=== PATIENT | male | born 1950 | race Caucasian/White ===

== ENCOUNTER → 2016-11-16 | Outpatient (CLI) | payer BC ==
[~2016-11-16] MED LIST: AMLO-110 PO; DVN160125 PO; EZET10TA38 PO; HEART MEDICATIONS
[2016-11-16 17:31] LABS: BASO % 0.7 %; BASO ABS # 0.04 K/uL (0-0.2); COMPLETE YES; EOS % 6.2 %; HEMATOCRIT 42.8 % (42-52); IG% 0.2 %; LYMPH % 24.9 %; LYMPH ABS # 1.48 K/uL (1.2-3.4); MEAN CELL VOLUME 94.7 fL (80-100); MEAN CORPUSCULAR HEMOGLOBIN 32.3 pg (25-34); MEAN CORPUSCULAR HGB CONC 34.1 g/dl (32-36); MEAN PLATELET VOLUME 10.9 fL (7.4-10.4); MONO % 11.3 %; NEUT % 56.7 %; PLATELET COUNT 195 K/uL (130-400); RED BLOOD COUNT 4.52 M/uL (4.7-6.1); WHITE BLOOD COUNT 5.95 K/uL (4.8-10.8)
[2016-11-16 17:40] LABS: ALT/SGPT 45 U/L (12-78); BLOOD UREA NITROGEN 16 mg/dl (7-18); BUN/CREATININE RATIO 12.2 (10-20); CALCIUM 9.4 mg/dl (8.5-10.1); CARBON DIOXIDE 27 mmol/L (21-32); CHLORIDE 111 mmol/L (98-107); CHOLESTEROL 133 mg/dl (0-200); GLUCOSE 88 mg/dl (70-99); POTASSIUM 4.2 mmol/L (3.5-5.1); SODIUM 145 mmol/L (136-145); TRIGLYCERIDES 167 mg/dl (0-150); VERY LOW DENSITY LIPOPROT CALC 33 mg/dl
[2016-11-16 17:43] LABS: ALB/GLOB RATIO 1.2 (0.9-2); ALKALINE PHOSPHATASE 89 U/L (45-117); AST/SGOT 18 U/L (15-37); CHOLESTEROL/HDL RATIO 3.2; HDL CHOLESTEROL 41 mg/dl; LDL CHOLESTEROL CALCULATED 59 mg/dl
[2016-11-17 06:35] LABS: ESTIMATED AVERAGE GLUCOSE 123 mg/dl; HA1C FLAG Normal (Normal)
== END | disposition home or self-care (01) ==
LOC: C.LABBFT 12:15
PROVIDERS: ATTEND Internal Medicine
DX: E78.00 Pure hypercholesterolemia, unspecified (principal); I10 Essential (primary) hypertension; R73.01 Impaired fasting glucose

== ENCOUNTER → 2017-06-01 | Outpatient (CLI) | payer BC ==
[2017-06-01 17:53] LABS: ALT/SGPT 53 U/L (12-78); AST/SGOT 20 U/L (15-37); BLOOD UREA NITROGEN 17 mg/dl (7-18); CALCIUM 8.9 mg/dl (8.5-10.1); CARBON DIOXIDE 29 mmol/L (21-32); CREATININE 1.05 mg/dl (0.60-1.40); GLUCOSE 90 mg/dl (70-99); POTASSIUM 4.1 mmol/L (3.5-5.1); SODIUM 140 mmol/L (136-145)
[2017-06-01 17:56] LABS: CHOLESTEROL 131 mg/dl (0-200); LDL CHOLESTEROL CALCULATED 53 mg/dl
[2017-06-02 05:42] LABS: HEMOGLOBIN A1C 5.9 % (4.5-5.6)
== END | disposition home or self-care (01) ==
LOC: C.LABBFT 12:11
PROVIDERS: ATTEND Physician Assistant Medical
DX: I25.10 Atherosclerotic heart disease of native coronary artery without angina pectoris (principal)

== ENCOUNTER 2019-05-23 08:11 | Inpatient (IN) ==
--- NOTE | 2019-05-05 13:41 | PAT Medication Instructions ---
Medication Instructions Date of Service May 05, 2019 Home Medications Medication Instructions Recorded albuterol sulfate 90 mcg/actuation 2 puffs INH QID PRN #8 gm 12/19/18 aerosol inhaler desoximetasone 0.25 % topical cream 1 appln TOP BID PRN #60 gm 01/23/19 albuterol sulfate 90 mcg/actuation aerosol inhaler 2 puffs INH QID PRN cetirizine 10 mg tablet 10 mg PO DAILY PRN desoximetasone 0.25 % topical cream 1 appln TOP BID PRN allopurinol 100 mg PO BID amlodipine 7.5 mg PO QAM aspirin 325 mg PO PM atorvastatin 80 mg PO PM folic acid 1 mg PO QAM metoprolol succinate [Toprol XL] 50 mg PO QAM valsartan 160 mg PO QAM vitamin B complex [Super B-50 Complex] 1 cap PO QAM ASK your prescriber and surgeon aspirin 325 mg PO PM STOP taking 24 hours before surgery desoximetasone 0.25 % topical cream 1 appln TOP BID PRN DO NOT take the morning of surgery cetirizine 10 mg tablet 10 mg PO DAILY PRN folic acid 1 mg PO QAM valsartan 160 mg PO QAM vitamin B complex [Super B-50 Complex] 1 cap PO QAM Take morning of surgery With a small sip of water, OTHERWISE NOTHING TO EAT OR DRINK AFTER MIDNIGHT: albuterol sulfate 90 mcg/actuation aerosol inhaler 2 puffs INH QID PRN (use if needed; please bring with you to hospital day of surgery if possible) allopurinol 100 mg PO BID amlodipine 7.5 mg PO QAM metoprolol succinate [Toprol XL] 50 mg PO QAM Take evening before surgery albuterol sulfate 90 mcg/actuation aerosol inhaler 2 puffs INH QID PRN (if needed) cetirizine 10 mg tablet 10 mg PO DAILY PRN (if needed) allopurinol 100 mg PO BID atorvastatin 80 mg PO PM Other Notes If you have any questions please call us at [phone] or [phone] or [phone] or [phone]
--- NOTE | 2019-05-08 12:48 | Anesthesiology Consultation ---
Date of Service May 08, 2019 Assessment & Plan (1) Encounter for pre-operative examination: - Awaiting review of preop testing (labs, EKG, CXR). - Cardiology: 01/13/19: "Coronary artery disease. He is not experiencing any anginal symptoms. However, he is having dyspnea on exertion walking hill. Also dyspnea walking up a ladder. He also complains of decreased stamina over the past year cannot exclude that the dyspnea is an anginal equivalent symptom." Stress test ordered for further evaluation (done 03/2019 and unremarkable). Carotid ultrasound done for hx of carotid artery disease. Continued on same regimen. F/U 6 months recommended. - ASA instructions: per surgeon/prescriber Chart Review Chart Review: Patient seen in Pre Admission Testing Teaching & Discussion Pre-Anesthesia Teaching/Discussion Notes: Instructed NPO after midnight before surgery,except medications with 15 cc of water. Medication instructions provided according to the PAT guidelines. History Surgery Operation Date: 05/16/19 10:50 Proposed Procedures p Right Carotid Endarterectomy - Ben Callahan MD Height/Weight Height: 5 ft 7 in Weight: 101.2 kg Allergies Allergy/AdvReac Type Severity Reaction Status Date / Time No Known Allergies Allergy Unknown Verified 05/04/19 15:32 Medications Home Medications Medication Instructions Recorded Confirmed Last Taken albuterol sulfate 90 mcg/actuation 2 puffs INH QID PRN #8 gm 12/19/18 05/04/19 Unknown aerosol inhaler cetirizine 10 mg tablet 10 mg PO DAILY PRN tab 12/23/18 05/04/19 Unknown desoximetasone 0.25 % topical cream 1 appln TOP BID PRN #60 gm 01/23/19 05/04/19 Unknown allopurinol 100 mg PO BID 05/04/19 05/04/19 Unknown amlodipine 7.5 mg PO QAM 05/04/19 05/04/19 Unknown aspirin 325 mg PO PM 05/04/19 05/04/19 Unknown atorvastatin 80 mg PO PM 05/04/19 05/04/19 Unknown folic acid 1 mg PO QAM 05/04/19 05/04/19 Unknown metoprolol succinate [Toprol XL] 50 mg PO QAM 05/04/19 05/04/19 Unknown valsartan 160 mg PO QAM 05/04/19 05/04/19 Unknown vitamin B complex [Super B-50 1 cap PO QAM 05/04/19 05/04/19 Unknown Complex] Past Medical History Medical History CAD (coronary artery disease) stent x 1 (1999) Carotid artery stenosis Neck CTA: 04/04/19: estimated greater than 90% stenosis of the right internal carotid artery origin. No hemodynamically significant LICA stenosis. Chronic lower back pain Gout Hyperlipidemia Hypertension Myocardial infarction 1999 Obesity Osteoarthritis PAD (peripheral artery disease) cardio/vascular monitoring Exercise / Class Metabolic Activity III < 4 Walking/Shop/Light housework Past Family History Family History Grandmother (Maternal) Family history of diabetes mellitus Other No family history of adverse response to anesthesia Past Surgical History Surgical History History of cardiac cath 1999= STENT X 1 History of right knee surgery Past Anesthesia History No Hx of Anesthesia Complications and No Family Hx of Anesthesia Complications History of PONV No Hx of PONV and No Hx of Motion Sickness Social History Smoking Status: Former smoker Do You Dip or Chew Tobacco: No Smoking End Date: QUIT 1999 Hx Alcohol Use: Yes Alcohol type: beer and hard liquor alcohol intake frequency: a few times a week Hx Substance Use: No substance use type: does not use Review of Systems URI symptoms as of 05/08/19 PAT visit- patient will monitor symptoms and advised to contact surgeon if persistent/worsening prior to surgery. CXR being done 05/08/19 as part of preop testing. Patient denies chest pain, shortness of breath, reflux, wheezing, palpitations. Physical Exam Vital Signs VITALS BP 135/84 P 55 TEMP 98.4 SP02 93%RA RESP 18 PHYSICAL Full neck and c-spine range of motion. Full TMJ range of motion. TMD 3.5 finger breaths Mallampati Score 1 Dentition: upper full denture, edentulous Lungs: clear throughout to auscultation Cardiac: regular rate and rhythm, no murmurs noted Spine: normal Carotid arteries: b/l bruits Extremities: no edema Testing Stress Test Date: 03/14/19 Type: exercise Negative exercise stress ECHO/EKG for ischemia at 75% MPHR. Mild cLVH. Grade I DD. Mild LAD. No significant valvular disease. 5 METS. LVEF 65-70%. Compared to stress echo from 05/2008, no significant interval change. Other Testing Neck CTA: 04/04/19: Extensive calcific atheromatous plaque at the level the right carotid bulb with an estimated greater than 90% stenosis of the right internal carotid artery origin. No hemodynamically significant LICA stenosis.
[2019-05-08 14:01] LABS: Mean Platelet Volume 11.3 fL (7.4-10.4); Platelet Count 146 K/uL (130-400)
--- NOTE | 2019-05-08 14:05 | XRay Report ---
XR chest Pre-admission PA/Lat CLINICAL HISTORY: Preoperative chest COMPARISON STUDY: No previous studies for comparison. FINDINGS: The cardiac and mediastinal contours are normal. There is no evidence of focal pulmonary co nsolidation. There is no evidence of failure. No pleural effusions are visualized.[ IMPRESSION: No active disease in the chest. ACT 112: Negative or not required by law. Electronically signed by: Edward Reddy M.D. 05/08/2019 2:03 PM
[2019-05-08 14:17] LABS: Partial Thromboplastin Ratio 0.9; Partial Thromboplastin Time 24.9 Seconds (21.0-31.0); Prothrombin Time 10.7 Seconds (9.0-12.0)
[2019-05-08 14:42] LABS: Basophils # (auto) 0.02 K/uL (0-0.2); Basophils % (auto) 0.5 %; Eosinophils # (auto) 0.28 K/uL (0-0.5); Eosinophils % (auto) 6.5 %; Hematocrit (blood only) 46.6 % (42-52); Hemoglobin 15.4 g/dL (14.0-18.0); Immature Granulocytes # (auto) 0.02 K/uL (0.00-0.02); Immature Granulocytes % (auto) 0.5 %; Lymphocytes # (auto) 0.98 K/uL (1.2-3.4); Lymphocytes % (auto) 22.6 %; Mean Corpuscular Hemoglobin 32.2 pg (25-34); Mean Corpuscular Volume 97.3 fL (80-100); Monocytes # (auto) 0.81 K/uL (0.11-0.59); Monocytes % (auto) 18.7 %; Neutrophils # (auto) 2.23 K/uL (1.4-6.5); Neutrophils % (auto) 51.2 %; RDW Coefficient of Variation 13.3 % (11.5-14.5); RDW Standard Deviation 47.1 fL (36.4-46.3); Red Blood Count 4.79 M/uL (4.7-6.1); White Blood Count 4.34 K/uL (4.8-10.8)
--- NOTE | 2019-05-08 15:44 | Electrocardiogram Report ---
Test Reason : Blood Pressure : / mmHG Vent. Rate : 056 BPM Atrial Rate : 056 BPM P-R Int : 168 ms QRS Dur : 146 ms QT Int : 470 ms P-R-T Axes : 040 090 038 degrees QTc Int : 453 ms Sinus bradycardia with occasional Premature ventricular complexes Right bundle branch block Abnormal ECG When compared with ECG of 25-JUL-1999 06:35, Premature ventricular complexes are now Present Right bundle branch block is now Present Criteria for Inferior infarct are no longer Present Confirmed by Sadiq Brown ([id number]) on 05/08/2019 3:43:50 PM Referred By: Ben Callahan Confirmed By:Sadiq Brown
[2019-05-08 15:51] LABS: BUN Creatinine Ratio 11.9 (10-20); Creatinine Clr Calc Pharmacy 71.3 ml/min; Est GFR (African American) 76.7; Est GFR (Non-African American) 66.2; Potassium 4.7 mmol/L (3.5-5.1)
--- NOTE | 2019-05-23 06:40 | History & Physical Report ---
Date of Service May 23, 2019 Assessment & Plan (1) Stenosis of right internal carotid artery: Patient is admitted for a right carotid endarterectomy. I have discussed the risks options and benefits of the procedure with the patient. The patient understands the risks options and benefits and agrees to the procedure. History of Present Illness Chief Complaint: Right internal carotid artery stenosis Primary Care Provider: Alex Correa MD Mr. Kole Mendez is a very pleasant 68-year-old gentleman who recently underwent a carotid duplex that was notable for 80% to 99% critical stenosis of the right internal carotid artery, less than 50% stenosis in the left internal carotid artery, and greater than 50% stenosis in the right external carotid artery. He then underwent a CT angio of the bilateral carotid arteries. CTA revealed extensive calcific atheromatous plaque at the level of the right carotid bulb with an estimated greater than 90% stenosis of the right internal carotid artery origin. This prompted a referral to the Vascular Surgery Office. He indicates that he has never had a stroke or TIA. He denies any episodes of vision loss, difficulty with speech or swallow, numbness, tingling, or weakness of the upper or lower extremities. His medical history is notable for prior ME, back in early 1999s. At this time, he had a coronary stent placed. He denies further anginal symptoms. He denies any issues with respiratory system. He has no known issues with his kidneys. He denies known abdominal issues. 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 This is associated with some hip and knee pain. He denies any cramping pain in his calves with ambulation. He also suffers from hypertension. His surgical history is notable for a previous knee replacement and a coronary artery stent placement. His family history is notable for heart disease, high blood pressure, diabetes, and cancer. Review of 10 systems performed. All were negative except for the HPI He denies any known medication allergies. His home medications include metoprolol, Diovan, Norvasc, folic acid, B vitamins, allopurinol, Lipitor, and aspirin 325 mg daily. On physical examination, his vital signs are as follows: Blood pressure 150/78, heart rate 58, oxygen saturation 96% on room air. He is well developed, well nourished, in no acute distress. His respirations are nonlabored on room air. His lungs are clear to auscultation bilaterally. On cardiac auscultation, he has an audible S1 and S2 with no murmurs, rubs, or gallops appreciated. On auscultation of his neck, there are bilateral carotid bruits present. His abdomen is soft, nontender, nondistended. There are no palpable pulsatile abdominal masses. His bilateral feet are warm and well perfused. There are palpable dorsalis pedis pulses present bilaterally. In regards to his neurologic examination, he responds to questions appropriately. Cranial nerves 2-12 are grossly intact. Motor and sensory are intact throughout all 4 extremities. On review of his imaging, there is a greater than 90% stenosis of the right internal carotid artery, which was noted on both the carotid duplex and CT angio as mentioned above. Allergies Allergy/AdvReac Type Severity Reaction Status Date / Time No Known Allergies Allergy Unknown Verified 05/04/19 15:32 Home Medications Home Medications Medication Instructions Recorded Confirmed Type albuterol sulfate 90 mcg/actuation 2 puffs INH QID PRN #8 gm 12/19/18 05/04/19 Rx aerosol inhaler cetirizine 10 mg tablet 10 mg PO DAILY PRN tab 12/23/18 05/04/19 History desoximetasone 0.25 % topical cream 1 appln TOP BID PRN #60 gm 01/23/19 05/04/19 Rx allopurinol 100 mg PO BID 05/04/19 05/04/19 History amlodipine 7.5 mg PO QAM 05/04/19 05/04/19 History aspirin 325 mg PO PM 05/04/19 05/04/19 History atorvastatin 80 mg PO PM 05/04/19 05/04/19 History folic acid 1 mg PO QAM 05/04/19 05/04/19 History metoprolol succinate [Toprol XL] 50 mg PO QAM 05/04/19 05/04/19 History valsartan 160 mg PO QAM 05/04/19 05/04/19 History vitamin B complex [Super B-50 1 cap PO QAM 05/04/19 05/04/19 History Complex] Past Med/Surg History Medical History CAD (coronary artery disease) stent x 1 (1999) Carotid artery stenosis Neck CTA: 04/04/19: estimated greater than 90% stenosis of the right internal carotid artery origin. No hemodynamically significant LICA stenosis. Chronic lower back pain Gout Hyperlipidemia Hypertension Myocardial infarction 1999 Obesity Osteoarthritis PAD (peripheral artery disease) cardio/vascular monitoring Surgical History History of cardiac cath 1999= STENT X 1 History of right knee surgery Family History Grandmother (Maternal) Family history of diabetes mellitus Other No family history of adverse response to anesthesia Social History Preferred Language: Irish Communication Ability: Effective Guide Escort Required: No Beliefs That Will Affect Care: None Current Living Situation: Spouse Other Information That Helps Us Care for You: No Feels Safe at Home: Yes Safety Concerns: Feels Safe At This Time Smoking Status: Former smoker Do You Dip or Chew Tobacco: No ; Smoking End Date: QUIT 1999 ; Second Hand Exposure: Yes (CURRENT EXPOSURE) ; Tobacco Cessation Education Requested by Patient: No Hx Alcohol Use: Yes Alcohol type: beer and hard liquor Hx Substance Use: No
[~2019-05-23 08:11] MED LIST changes: -AMLO-110 PO; +CEFAZOLIN 2000MG 2,000 MG/15 ML SYR IV SCH; -DVN160125 PO; -EZET10TA38 PO; -HEART MEDICATIONS; +LACTATED RINGER'S 1,000 ML IV SCH
[2019-05-23] MEDS ORDERED: NEOSTIGMINE METHYLSULFATE 5 MG/5 ML SYR ONE (09:27)
[2019-05-23] MEDS ORDERED: PROPOFOL IV EMULSION 10 MG/ML 20 ML VIAL IV ONE ×2 (09:27→13:01)
[2019-05-23] MEDS ORDERED: ROCURONIUM BROMIDE 10 MG/ML 5 ML VIAL ONE (09:27)
[2019-05-23] MEDS ORDERED: LIDOCAINE HCL 2% 2 ML VIAL/AMP(20MG/ML) INFIL ONE (09:27)
[2019-05-23] MEDS ORDERED: GLYCOPYRROLATE 0.2 MG/ML VIAL ONE (09:27)
[2019-05-23] MEDS ORDERED: MIDAZOLAM HCL 1 MG/ML 2ML VIAL ONE (09:27)
[2019-05-23] MEDS ORDERED: fentaNYL citrate 100 MCG/2 ML VIAL ONE ×2 (09:28→11:35)
[2019-05-23] MEDS ORDERED: ATROPINE SULFATE 0.1 MG/ML 10ML SYR IV PRN (09:50)
[2019-05-23] MEDS ORDERED: ePHEDrine sulfate 50 MG/ML AMP IV PRN (09:50)
[2019-05-23] MEDS ORDERED: fentaNYL citrate 100 MCG/2 ML VIAL IV PRN (09:50)
[2019-05-23] MEDS ORDERED: ONDANSETRON INJ 2 MG/ML 2 ML VIAL IV PRN (09:50)
[2019-05-23] MEDS ORDERED: HYDROmorphone INJ 2 MG/ML SYR/VIAL IV PRN (09:50)
--- NOTE | 2019-05-23 10:17 | History & Physical Bridge Note ---
Date of Service May 23, 2019 History & Physical Bridge Note I have examined the patient, reviewed the History & Physical and in the interval since the performance of the History & Physical I have noted the following changes of clinical significance: no changes noted
[2019-05-23] MEDS ORDERED: HEPARIN (PORCINE) 1000 UNIT/ML 10 ML (CATH LAB USE ONLY) ONE (10:41)
[2019-05-23] MEDS ORDERED: LIDOCAINE HCL 1% 20 ML VIAL ONE (10:41)
[2019-05-23] MEDS ORDERED: GELATIN SPONGE SZ 100 ONE (10:42)
[2019-05-23] MEDS ORDERED: THROMBIN FOR SOLN 20000 UNIT KIT ONE (10:42)
[2019-05-23] MEDS ORDERED: BUPIVACAINE/EPINEPHRINE 0.5% MPF 1:200,000 10 ML VIAL ONE (10:42)
[2019-05-23] MEDS ORDERED: CEFAZOLIN 250 MG/ML 1 GM VIAL ONE (10:42)
--- NOTE | 2019-05-23 11:42 | Procedure Note ---
Procedure Note Date of Service May 23, 2019 Radial arterial line placed in ASU 2 preop in preparation for CEA with Dr. Callahan. Left wrist prepped with chlorhexidine and draped with sterile towels. Site infiltrated with 1 cc of 1% lidocaine. 20 G angiocath placed under sterile technique with ultrasound guidance utilizing sterile gloves, surgical hats and masks. Catheter threaded using seldinger technique with return of pulsatile, bright red blood. Site covered with occlusive dressing and taped in place. Waveform consistent with correct arterial placement. After placement, fingers of procedural hand had normal perfusion. Patient tolerated procedure well without complications. Mary Lester MD, PhD Anesthesiologist Coding
[2019-05-23] MEDS ORDERED: DEXAMETHASONE SOD INJ 4 MG/ML VIAL ONE (11:50)
[2019-05-23] MEDS ORDERED: ONDANSETRON INJ 2 MG/ML 2 ML VIAL ONE (11:50)
[2019-05-23] MEDS ORDERED: ePHEDrine sulfate 50 MG/ML SYR ONE (12:25)
[2019-05-23] MEDS ORDERED: HEPARIN SOD (PORCINE) 1000 UNIT/ML 10 ML VIAL ONE (12:25)
[2019-05-23] MEDS ORDERED: PHENYLEPHRINE HCL 10 MG/ML VIAL ONE (12:25)
--- NOTE | 2019-05-23 13:22 | Post Operative Brief Note ---
Immediate Post Op Note v1 Date of Surgery May 23, 2019 Pre & Post Diagnosis Operation Date: 05/23/19 10:20 Pre-Op Diagnosis: Right Internal Carotid Artery Stenosis Post-Op Diagnosis: Right Internal Carotid Artery Stenosis I identified the patient and participated in the time-out.: Yes Procedure Operation Date: 05/23/19 10:20 Actual Procedures p Right Carotid Endarterectomy, with bovine patch(Right) - Ben Callahan MD Surgeon Ben Callahan MD Personal Development Coach MD Venus L.Minarchick,PAC Estimated Blood Loss 120 Findings Consistent with Post-Op Diagnosis Anesthesia Type General Complications none Disposition Accompanied Patient To Recovery: No Disposition: Recovery Room
--- NOTE | 2019-05-23 13:54 | Operative Report ---
Post Operative Report Pre & Post Diagnosis Operation Date: 05/23/19 10:20 Pre-Op Diagnosis: Right Internal Carotid Artery Stenosis Post-Op Diagnosis: Right Internal Carotid Artery Stenosis I identified the patient and participated in the time-out.: Yes Procedure Operation Date: 05/23/19 10:20 Actual Procedures p Right Carotid Endarterectomy, with bovine patch(Right) - Ben Callahan MD Surgeon Ben Callahan MD Animal Sticker MD Venus L.Minarchick,PAC Estimated Blood Loss 120 Findings Consistent with Post-Op Diagnosis Fluids 1200 ml crystalloid Specimens Carotid plaque Drains None Anesthesia Type General Complications none Disposition Accompanied Patient To Recovery: No Disposition: Recovery Room Indications 68-year-old gentleman presents with critical right carotid artery stenosis with greater than 90% stenosis of the right internal carotid artery noted in both carotid duplex as well as CT angiogram. He has had no other symptoms prior to presentation. It was recommended he undergo a right carotid endarterectomy. I have discussed the risks options and benefits of the procedure with the patient. The patient understands the risks options and benefits and agrees to the procedure. Description of Procedure The patient was taken to the operating room and placed in supine position. After general anesthesia was accomplished the Right-side of the neck was prepped and draped in a sterile manner. A timeout was performed and the patient id entified. A longitudinal neck incision was then made coursing along the medial border of the sternocleidomastoid muscle. The incision was taken down through the platysmal layer. The facial vein was identified, ligated, and divided. The common carotid artery was then seen. The vagus was also identified and preserved. The common carotid was dissected free down to the omohyoid muscle. The dissection was carried upward until the external carotid artery and superior thyroid artery was seen. The superior thyroid artery was slung with a 2-0 silk suture. The external carotid was slung with a red rubber vessel loop. Next the dissection was carried up along the internal carotid artery. This was carried upward to beyond the area of narrowing. During this the patient became bradycardic, and lidocaine was injected into the carotid bulb with appropriate recovery of heart rate and blood pressures. The hypoglossal nerve was seen and preserved. The patient was heparinized. After adequate heparinization was accomplished, the internal, external, and common carotid arteries were clamped. A longitudinal arteriotomy was started on the common carotid artery and extended upward along the internal carotid artery to a point beyond the area of narrowing. There was calcified plaque of the internal carotid artery origin causing approximately 90% narrowing. A Doppler shunt was then placed in the internal, followed by the common carotid artery and held in place with Naresh clamps. There was good back bleeding seen from the internal carotid artery. The endarterectomy was then started in the appropriate plane on the common carotid artery. This was carried upward and the external carotid was everted and endarterectomized. The endarterectomy was then carried up along the internal carotid artery till a nice feathering breakoff point was accomplished beyond the end of the plaque. The endarterectomy was then carried down further on the common carotid artery. At end of the arteriotomy, the plaque was then transected. Under loop magnification, all loose debris and flaps were removed. There is no distal flap seen at the end of the endarterectomy site. The arteriotomy then closed using a bovine patch and a double arm running 6-Prolene suture. This was done in the usual vascular fashion. Prior to completing the closure, the doppler shunt was removed and the internal and common carotid arteries were reclamped. Backbleeding and forward bleeding was allowed to occur. The flow surface was irrigated with heparinized saline. The final few sutures were then placed and securely tied. Clamps were then removed off the external and common carotid arteries. The clamp was then removed the internal carotid artery. Good distal flow was seen. Three regions of small leak were identified and addressed with additional interrupted [id number] 6-0 Prolene suture. Following this, adequate hemostasis was seen of the patch. The wound was inspected and adequate hemostasis was obtained. using thrombin soaked gel foam- the gel foam was then removed. The wound was irrigated with antibiotic solution. It was then closed with a running 3-0 Vicryl suture for the platysmal layer and a 4-0 subcuticular Vicryl suture for the skin edges. Dermabond was used for dressing. The patient left the operating room in satisfactory condition and tolerated the procedure well. All sponge and needle counts are correct at the conclusion of the case. Dr. Callahan was present and scrubbed for the entirety of the case. I attest to the content of the Intraoperative Record and any orders documented therein. Any exceptions are noted below.
--- NOTE | 2019-05-23 14:58 | Anesthesiology Progress Note ---
Date of Service May 23, 2019 Anesthesia Post Procedure Vital Signs Vital Signs: Temp Pulse Pulse Resp BP BP Pulse Ox 05/23/19 14:50 36.5 C 59 L 21 110/57 L 94 05/23/19 14:40 60 17 102/63 92 05/23/19 14:30 65 17 110/65 93 05/23/19 14:20 62 13 106/65 95 05/23/19 14:10 60 12 109/62 95 05/23/19 14:04 36.5 C 69 12 122/62 97 05/23/19 09:07 36.9 C 76 18 168/95 H 94 Transfer of Care Handoff Completed per policy Notes Mental Status: alert / awake / arousable and participated in evaluation Patient Amnestic to Procedure: Yes Nausea / Vomiting: adequately controlled Pain: adequately controlled Airway Patency, RR, SpO2: stable & adequate BP & HR: stable & adequate Hydration State: stable & adequate Anesthetic Complications: no major complications apparent and Pt Satisfied with anesthetic care
[2019-05-23] MEDS ORDERED: CETIRIZINE HCL 10 MG TABLET PO PRN (15:22)
[2019-05-23] MEDS ORDERED: MoRPHine SULFATE 4 MG/ML 1 ML CARP\\VIAL IV PRN (15:22)
[2019-05-23] MEDS ORDERED: OXYCODONE/ACETAMINOPHEN 5mg/325mg TAB PO PRN (15:22)
[2019-05-23] MEDS ORDERED: ALBUTEROL HFA 8 GM INHALER INH PRN (15:26)
--- NOTE | 2019-05-23 15:49 | Critical Care Consultation ---
Date of Consultation May 23, 2019 Assessment & Plan (1) Stenosis of right internal carotid artery: Impression: 68-year-old male status post carotid endarterectomy. The patient has a history of hypertension hyperlipidemia but appears to be doing well postoperatively. Recommendation: 1. Status post carotid endarterectomy. Management per vascular surgery. 2. Hypertension: Continue the patient's outpatient antihypertensives. Blood pressure goals per vascular surgery. 3. Hyperlipidemia: Continue statin. 4. Obesity: The patient is at high risk for sleep disordered breathing. Will monitor overnight tonight. If he has significant witnessed apnea, consideration for referral for overnight attended polysomnogram versus home sleep study may be appropriate. 5. The patient's remaining critical care issues have been well addressed by the vascular surgical service. We will continue to follow while in the ICU for critical care issues. Feel free to contact us if we can be of additional assistance. (2) Hypertension: (3) Hyperlipidemia: History of Present Illness Attending Physician: Ben Callahan MD History of Present Illness Asked by vascular surgery service to assist with critical care management of this patient status post carotid endarterectomy. History is obtained from review the electronic medical record as well as discussion with the patient. Patient is a 68-year-old with a history of obesity, hypertension found to have carotid stenosis. He has a remote history of coronary disease and. He was evaluated by Dr. Callahan and felt to be an appropriate candidate for carotid endarterectomy. He was taken to the OR today and underwent right carotid endarterectomy. The procedure was uncomplicated and he returns to the ICU for monitoring. He is currently awake and alert. He denies any neurological symptoms. His pain is well controlled. No diplopia. No problems with speaking or swallowing. Allergies Allergy/AdvReac Type Severity Reaction Status Date / Time No Known Allergies Allergy Unknown Verified 05/23/19 08:51 Home Medications Home Medications Medication Instructions Recorded Confirmed Type albuterol sulfate 90 mcg/actuation 2 puffs INH QID PRN #8 gm 12/19/18 05/23/19 Rx aerosol inhaler cetirizine 10 mg tablet 10 mg PO DAILY PRN tab 12/23/18 05/23/19 History allopurinol 100 mg PO BID 05/04/19 05/23/19 History amlodipine 7.5 mg PO QAM 05/04/19 05/23/19 History aspirin 325 mg PO PM 05/04/19 05/23/19 History atorvastatin 80 mg PO PM 05/04/19 05/23/19 History folic acid 1 mg PO QAM 05/04/19 05/23/19 History metoprolol succinate [Toprol XL] 50 mg PO QAM 05/04/19 05/23/19 History valsartan 160 mg PO QAM 05/04/19 05/23/19 History vitamin B complex [Super B-50 1 cap PO QAM 05/04/19 05/23/19 History Complex] desoximetasone [Topicort] 1 appln TOP BID PRN 05/23/19 05/23/19 History Patient History Medical History CAD (coronary artery disease) stent x 1 (1999) Carotid artery stenosis Neck CTA: 04/04/19: estimated greater than 90% stenosis of the right internal carotid artery origin. No hemodynamically significant LICA stenosis. 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 No additions or deletions Physical Exam Constitutional: WD/WN, vitals as above Neck: trachea midline, no thyromegaly Carotid endarterectomy incision clean dry and intact Respiratory: normal respiratory effort, lungs clear to auscultation Cardiovascular: RRR, no murmur, no edema Gastrointestinal (Abdomen): normal bowel sounds, soft, nontender, no hepa tosplenomegaly Musculoskeletal: Extremities: extremities normal to inspection Skin: no rashes, warm and dry Neurologic: Nonfocal exam Lymphatic: no cervical lymphadenopathy Results & Data Vital Signs (Past 12 Hours) Vital Signs Temp Pulse Pulse Resp BP BP Pulse Ox 05/23/19 15:00 62 15 104/58 L 96 05/23/19 14:50 36.5 C 59 L 21 110/57 L 94 05/23/19 14:40 60 17 102/63 92 05/23/19 14:30 65 17 110/65 93 05/23/19 14:20 62 13 106/65 95 05/23/19 14:10 60 12 109/62 95 05/23/19 14:04 36.5 C 69 12 122/62 97 05/23/19 09:07 36.9 C 76 18 168/95 H 94 Laboratory Results 05/08/19 13:34 05/08/19 13:34 Diagnostic Findings Chest x-ray from 05/08/2019 was independently reviewed. Lungs are well aerated. Cardiac and mediastinal silhouettes are unremarkable. No increased interstitial markings or pleural effusions. Coding Level of Care Code 30071 Inpt Consult Level 3 Diagnoses Stenosis of right internal carotid artery I65.21 Hypertension I10 Hyperlipidemia E78.5
[2019-05-23] MEDS ORDERED: SODIUM CHLORIDE 0.9% 1000ML 500 ML IV ONE (15:57)
[2019-05-23] MEDS: LACTATED RINGER'S 1,000 ML IV SCH (16:32)
[2019-05-23] MEDS: PHENYLEPHRINE HCL 20 MG in DEXTROSE 5% 500 ML IV SCH (17:10)
[2019-05-23] MEDS: CEFAZOLIN 2000MG 2,000 MG/15 ML SYR IV SCH (19:26)
[2019-05-23] MEDS: ASPIRIN 325 MG ECTAB PO SCH (20:35)
[2019-05-23] MEDS: ATORVASTATIN 40 MG TAB PO SCH (20:35)
[2019-05-23] MEDS: allopurinoL 100 MG TAB PO SCH (20:36)
[2019-05-24] MEDS: PHENYLEPHRINE HCL 20 MG in DEXTROSE 5% 500 ML IV SCH ×2 (00:13→07:10)
[2019-05-24] MEDS: CEFAZOLIN 2000MG 2,000 MG/15 ML SYR IV SCH (04:11)
[2019-05-24 05:10] LABS: Hematocrit (blood only) 40.4 % (42-52); Hemoglobin 13.5 g/dL (14.0-18.0); Immature Granulocytes # (auto) 0.03 K/uL (0.00-0.02); Immature Granulocytes % (auto) 0.3 %; Lymphocytes # (auto) 1.27 K/uL (1.2-3.4); Lymphocytes % (auto) 11.1 %; Mean Corpuscular Hemoglobin 32.4 pg (25-34); Mean Corpuscular Hgb Conc 33.4 g/dL (32-36); Mean Corpuscular Volume 96.9 fL (80-100); Mean Platelet Volume 11.1 fL (7.4-10.4); Monocytes # (auto) 1.42 K/uL (0.11-0.59); Monocytes % (auto) 12.4 %; Neutrophils # (auto) 8.74 K/uL (1.4-6.5); Neutrophils % (auto) 76.2 %; Platelet Count 208 K/uL (130-400); RDW Coefficient of Variation 13.4 % (11.5-14.5); RDW Standard Deviation 46.8 fL (36.4-46.3); Red Blood Count 4.17 M/uL (4.7-6.1); White Blood Count 11.46 K/uL (4.8-10.8)
[2019-05-24 05:26] LABS: BUN Creatinine Ratio 13.6 (10-20); Calcium 8.5 mg/dl (8.5-10.1); Creatinine Clr Calc Pharmacy 64.6 ml/min; Est GFR (African American) 68.6; Est GFR (Non-African American) 59.2; Potassium 4.3 mmol/L (3.5-5.1)
[2019-05-24] MEDS: FOLIC ACID 1 MG TAB PO SCH (07:34)
[2019-05-24] MEDS: allopurinoL 100 MG TAB PO SCH ×2 (07:35→20:49)
[2019-05-24] MEDS: VITAMIN B COMPLEX TAB PO SCH (07:35)
--- NOTE | 2019-05-24 08:12 | Anesthesiology Progress Note ---
Date of Service May 24, 2019 Anesthesia Post Procedure Vital Signs Vital Signs: Temp Pulse Pulse Pulse Resp BP BP 05/24/19 07:46 76 27 H 136/97 05/24/19 07:45 37.1 C 71 17 05/24/19 07:31 70 28 H 05/24/19 07:30 71 25 H 134/83 05/24/19 07:16 56 L 17 05/24/19 07:15 57 L 18 134/68 05/24/19 07:01 58 L 18 05/24/19 07:00 60 17 132/70 05/24/19 06:46 57 L 16 05/24/19 06:45 61 17 137/71 05/24/19 06:31 60 13 05/24/19 06:30 60 15 136/81 05/24/19 06:16 59 L 18 05/24/19 06:15 66 20 123/82 05/24/19 06:05 69 32 H 05/24/19 05:46 53 L 17 05/24/19 05:45 56 L 18 137/76 05/24/19 05:31 53 L 17 05/24/19 05:30 53 L 17 132/75 05/24/19 05:16 55 L 17 05/24/19 05:15 54 L 17 143/74 H 05/24/19 05:00 70 22 05/24/19 04:46 54 L 20 05/24/19 04:45 62 23 144/79 H 05/24/19 04:31 54 L 16 05/24/19 04:00 37.1 C 57 L 16 134/70 05/24/19 03:00 56 L 19 138/73 05/24/19 02:00 59 L 18 134/73 05/24/19 01:00 58 L 17 135/69 05/24/19 00:00 37.1 C 53 L 17 125/67 05/23/19 23:00 56 L 17 138/75 05/23/19 22:31 56 L 19 05/23/19 22:30 60 21 136/75 05/23/19 22:20 56 L 17 05/23/19 22:16 56 L 17 05/23/19 22:15 55 L 17 128/70 05/23/19 22:01 56 L 14 05/23/19 22:00 55 L 18 132/71 05/23/19 21:46 58 L 24 126/51 L 05/23/19 21:45 70 21 05/23/19 21:31 64 23 05/23/19 21:30 58 L 19 146/76 H 05/23/19 21:16 56 L 15 05/23/19 21:15 53 L 16 129/74 05/23/19 21:01 53 L 18 05/23/19 21:00 56 L 15 137/70 05/23/19 20:46 56 L 18 05/23/19 20:45 55 L 14 127/75 05/23/19 20:31 57 L 18 05/23/19 20:30 57 L 19 135/68 05/23/19 20:16 53 L 16 05/23/19 20:15 56 L 16 129/68 05/23/19 20:01 53 L 18 05/23/19 20:00 53 L 19 138/73 05/23/19 19:50 51 L 05/23/19 19:46 52 L 18 05/23/19 19:45 53 L 17 126/70 05/23/19 19:31 57 L 22 05/23/19 19:30 60 20 138/71 05/23/19 19:16 53 L 19 05/23/19 19:15 36.9 C 52 L 16 133/69 05/23/19 19:01 54 L 20 05/23/19 19:00 54 L 19 128/72 05/23/19 18:46 53 L 12 05/23/19 18:45 53 L 16 131/66 05/23/19 18:40 48 L 18 05/23/19 18:31 52 L 15 05/23/19 18:30 53 L 17 126/67 05/23/19 18:20 51 L 18 05/23/19 18:15 52 L 18 129/66 05/23/19 18:10 52 L 18 05/23/19 18:01 45 L 21 05/23/19 18:00 48 L 20 131/65 05/23/19 17:50 51 L 20 05/23/19 17:45 51 L 19 133/68 05/23/19 17:40 47 L 17 05/23/19 17:38 52 L 18 130/65 05/23/19 17:36 46 L 22 131/63 05/23/19 17:31 46 L 18 05/23/19 17:30 47 L 15 122/62 05/23/19 17:25 48 L 17 116/66 05/23/19 17:22 05/23/19 17:20 55 L 20 05/23/19 17:16 52 L 24 05/23/19 17:15 52 L 22 101/58 L 05/23/19 17:01 58 L 24 05/23/19 17:00 62 22 99/63 L 05/23/19 16:50 59 L 25 H 05/23/19 16:46 61 21 05/23/19 16:45 59 L 20 103/49 L 05/23/19 16:40 67 18 05/23/19 16:31 59 L 12 05/23/19 16:20 61 18 98/55 L 05/23/19 16:16 60 15 92/54 L 05/23/19 16:10 59 L 23 05/23/19 16:01 58 L 20 05/23/19 16:00 60 23 105/48 L 05/23/19 15:55 58 L 19 96/47 L 05/23/19 15:54 61 22 91/57 L 05/23/19 15:50 59 L 23 05/23/19 15:40 58 L 19 05/23/19 15:30 58 L 18 05/23/19 15:20 59 L 15 05/23/19 15:18 36.6 C 58 L 96/50 L 05/23/19 15:00 62 15 05/23/19 14:50 36.5 C 59 L 21 05/23/19 14:40 60 17 05/23/19 14:30 65 17 05/23/19 14:20 62 13 05/23/19 14:10 60 12 05/23/19 14:04 36.5 C 69 12 05/23/19 09:07 36.9 C 76 18 168/95 H BP Pulse Ox 05/24/19 07:46 93 05/24/19 07:45 93 05/24/19 07:31 93 05/24/19 07:30 93 05/24/19 07:16 91 05/24/19 07:15 94 05/24/19 07:01 91 05/24/19 07:00 91 05/24/19 06:46 92 05/24/19 06:45 93 05/24/19 06:31 91 05/24/19 06:30 90 05/24/19 06:16 94 05/24/19 06:15 94 05/24/19 06:05 05/24/19 05:46 93 05/24/19 05:45 93 05/24/19 05:31 91 05/24/19 05:30 92 05/24/19 05:16 93 05/24/19 05:15 93 05/24/19 05:00 93 05/24/19 04:46 92 05/24/19 04:45 94 05/24/19 04:31 94 05/24/19 04:00 92 05/24/19 03:00 91 05/24/19 02:00 92 05/24/19 01:00 92 05/24/19 00:00 92 05/23/19 23:00 90 05/23/19 22:31 91 05/23/19 22:30 93 05/23/19 22:20 91 05/23/19 22:16 90 05/23/19 22:15 91 05/23/19 22:01 96 05/23/19 22:00 91 05/23/19 21:46 91 05/23/19 21:45 05/23/19 21:31 93 05/23/19 21:30 92 05/23/19 21:16 91 05/23/19 21:15 91 05/23/19 21:01 95 05/23/19 21:00 94 05/23/19 20:46 91 05/23/19 20:45 96 05/23/19 20:31 90 05/23/19 20:30 91 05/23/19 20:16 90 05/23/19 20:15 91 05/23/19 20:01 96 05/23/19 20:00 97 05/23/19 19:50 05/23/19 19:46 96 05/23/19 19:45 97 05/23/19 19:31 96 05/23/19 19:30 95 05/23/19 19:16 97 05/23/19 19:15 97 05/23/19 19:01 98 05/23/19 19:00 97 05/23/19 18:46 97 05/23/19 18:45 98 01/21/20 18:40 96 05/23/19 18:31 96 05/23/19 18:30 95 05/23/19 18:20 96 05/23/19 18:15 95 05/23/19 18:10 96 05/23/19 18:01 96 05/23/19 18:00 96 05/23/19 17:50 96 05/23/19 17:45 96 05/23/19 17:40 95 05/23/19 17:38 96 05/23/19 17:36 96 05/23/19 17:31 96 05/23/19 17:30 96 05/23/19 17:25 96 05/23/19 17:22 118/58 L 05/23/19 17:20 96 05/23/19 17:16 95 05/23/19 17:15 95 05/23/19 17:01 96 05/23/19 17:00 94 05/23/19 16:50 95 05/23/19 16:46 95 05/23/19 16:45 93 05/23/19 16:40 94 05/23/19 16:31 95 05/23/19 16:20 95 05/23/19 16:16 97 05/23/19 16:10 95 05/23/19 16:01 93 05/23/19 16:00 95 05/23/19 15:55 95 05/23/19 15:54 94 05/23/19 15:50 95 05/23/19 15:40 95 05/23/19 15:30 94 05/23/19 15:20 93 05/23/19 15:18 97 05/23/19 15:00 104/58 L 96 05/23/19 14:50 110/57 L 94 05/23/19 14:40 102/63 92 05/23/19 14:30 110/65 93 05/23/19 14:20 106/65 95 05/23/19 14:10 109/62 95 05/23/19 14:04 122/62 97 05/23/19 09:07 94 Notes Mental Status: alert / awake / arousable Patient Amnestic to Procedure: Yes Nausea / Vomiting: adequately controlled Pain: adequately controlled (pt denied any pain;) Airway Patency, RR, SpO2: stable & adequate BP & HR: stable & adequate Hydration State: stable & adequate Anesthetic Complications: no major complications apparent
[2019-05-24] MEDS ORDERED: AMLODIPINE BESYLATE 5 MG TAB PO SCH (09:00)
[2019-05-24] MEDS ORDERED: VALSARTAN 80 MG TAB PO SCH (09:00)
[2019-05-24] MEDS ORDERED: METOPROLOL SUCC 50MG EXT REL TAB PO SCH (09:00)
--- NOTE | 2019-05-24 09:14 | Critical Care Progress Note ---
Date of Service May 24, 2019 Assessment & Plan (1) Stenosis of right internal carotid artery: Impression: 68-year-old male postop day 2 carotid endarterectomy. The patient has a history of hypertension hyperlipidemia. He did require phenylephrine overnight to maintain blood pressure within target Recommendation: 1. Status post carotid endarterectomy. Management per vascular surgery. 2. Hypertension: Holding his antihypertensives currently. Blood pressure goals per vascular surgery. Wean Jose-Synephrine as tolerated. Defer Middaugh drain and/or Sudafed to vascular surgery. 3. Hyperlipidemia: Continue statin. 4. Obesity: The patient is at high risk for sleep disordered breathing. Consider outpatient sleep study. 5. Leukocytosis: Mild and suspect reactive to surgery. Continue to follow for now. No indication of infection acutely. 6. Disposition per vascular surgery. (2) Hypertension: (3) Hyperlipidemia: Subjective No complaints overnight. He did need to be initiated on low-dose Levophed to support blood pressure in a target range of 1 20-1 30. Pain is well controlled biliary is tolerating a diet. He offers no new complaints. No neurological issues overnight. Review of Systems Review of Systems: Unchanged from prior Physical Exam Constitutional: WD/WN, vitals as above Neck: trachea midline, no thyromegaly Respiratory: normal respiratory effort, lungs clear to auscultation Cardiovascular: RRR, no murmur, no edema Gastrointestinal (Abdomen): normal bowel sounds, soft, nontender, no hepatosplenomegaly Musculoskeletal: Extremities: extremities normal to inspection Skin: no rashes, warm and dry Lymphatic: no cervical lymphadenopathy Results & Data Vital Signs (Past 12 Hours) Vital Signs Temp Pulse Resp BP Pulse Ox 05/24/19 07:46 76 27 H 136/97 93 05/24/19 07:45 37.1 C 71 17 93 05/24/19 07:31 70 28 H 93 05/24/19 07:30 71 25 H 134/83 93 05/24/19 07:16 56 L 17 91 05/24/19 07:15 57 L 18 134/68 94 05/24/19 07:01 58 L 18 91 05/24/19 07:00 60 17 132/70 91 05/24/19 06:46 57 L 16 92 05/24/19 06:45 61 17 137/71 93 05/24/19 06:31 60 13 91 05/24/19 06:30 60 15 136/81 90 05/24/19 06:16 59 L 18 94 05/24/19 06:15 66 20 123/82 94 05/24/19 06:05 69 32 H 05/24/19 05:46 53 L 17 93 05/24/19 05:45 56 L 18 137/76 93 05/24/19 05:31 53 L 17 91 05/24/19 05:30 53 L 17 132/75 92 05/24/19 05:16 55 L 17 93 05/24/19 05:15 54 L 17 143/74 H 93 05/24/19 05:00 70 22 93 05/24/19 04:46 54 L 20 92 05/24/19 04:45 62 23 144/79 H 94 05/24/19 04:31 54 L 16 94 05/24/19 04:00 37.1 C 57 L 16 134/70 92 05/24/19 03:00 56 L 19 138/73 91 05/24/19 02:00 59 L 18 134/73 92 05/24/19 01:00 58 L 17 135/69 92 05/24/19 00:00 37.1 C 53 L 17 125/67 92 05/23/19 23:00 56 L 17 138/75 90 05/23/19 22:31 56 L 19 91 05/23/19 22:30 60 21 136/75 93 05/23/19 22:20 56 L 17 91 05/23/19 22:16 56 L 17 90 05/23/19 22:15 55 L 17 128/70 91 05/23/19 22:01 56 L 14 96 05/23/19 22:00 55 L 18 132/71 91 05/23/19 21:46 58 L 24 126/51 L 91 05/23/19 21:45 70 21 05/23/19 21:31 64 23 93 05/23/19 21:30 58 L 19 146/76 H 92 05/23/19 21:16 56 L 15 91 05/23/19 21:15 53 L 16 129/74 91 Coding Level of Care Code 31325 Subseq Hosp Care Lvl 2 Diagnoses Stenosis of right internal carotid artery I65.21 Hypertension I10 Hyperlipidemia E78.5
--- NOTE | 2019-05-24 09:26 | Surgery Progress Note ---
Date of Service May 24, 2019 Assessment & Plan (1) Status post carotid endarterectomy: pt s/p R CEA, doing well post op. d/c rebecca, start sudafed, start metoprolol. Continue to monitor. Subjective 68 yo m POD #1 after uncomplicated R CEA wiht bovine patch angioplasty, seenin f/u today. Pt admits fatigue and mild neck pain. Denies any other new complaints, including unilateral weakness, numbness, tingling, facial droop, difficulty spekaing or swallowing difficulties. Review of Systems Review of Systems: All systems reviewed & are unremarkable except as noted in HPI & below Physical Exam Constitutional: WD/WN, vitals as above no acute distress Respiratory: normal respiratory effort, lungs clear to auscultation Cardiovascular: RRR, no murmur, no edema Gastrointestinal (Abdomen): normal bowel sounds, soft, nontender, no hepatosplenomegaly Neurologic: moves all extremities; no focal motor deficits Psychiatric: A+Ox3, euthymic affect Results & Data Vital Signs (Past 12 Hours) Vital Signs Temp Pulse Resp BP Pulse Ox 05/24/19 07:46 76 27 H 136/97 93 05/24/19 07:45 37.1 C 71 17 93 05/24/19 07:31 70 28 H 93 05/24/19 07:30 71 25 H 134/83 93 05/24/19 07:16 56 L 17 91 05/24/19 07:15 57 L 18 134/68 94 05/24/19 07:01 58 L 18 91 05/24/19 07:00 60 17 132/70 91 05/24/19 06:46 57 L 16 92 05/24/19 06:45 61 17 137/71 93 05/24/19 06:31 60 13 91 05/24/19 06:30 60 15 136/81 90 05/24/19 06:16 59 L 18 94 05/24/19 06:15 66 20 123/82 94 05/24/19 06:05 69 32 H 05/24/19 05:46 53 L 17 93 05/24/19 05:45 56 L 18 137/76 93 05/24/19 05:31 53 L 17 91 05/24/19 05:30 53 L 17 132/75 92 05/24/19 05:16 55 L 17 93 05/24/19 05:15 54 L 17 143/74 H 93 05/24/19 05:00 70 22 93 05/24/19 04:46 54 L 20 92 05/24/19 04:45 62 23 144/79 H 94 05/24/19 04:31 54 L 16 94 05/24/19 04:00 37.1 C 57 L 16 134/70 92 05/24/19 03:00 56 L 19 138/73 91 05/24/19 02:00 59 L 18 134/73 92 05/24/19 01:00 58 L 17 135/69 92 05/24/19 00:00 37.1 C 53 L 17 125/67 92 05/23/19 23:00 56 L 17 138/75 90 05/23/19 22:31 56 L 19 91 05/23/19 22:30 60 21 136/75 93 05/23/19 22:20 56 L 17 91 05/23/19 22:16 56 L 17 90 05/23/19 22:15 55 L 17 128/70 91 05/23/19 22:01 56 L 14 96 05/23/19 22:00 55 L 18 132/71 91 05/23/19 21:46 58 L 24 126/51 L 91 05/23/19 21:45 70 21 05/23/19 21:31 64 23 93 05/23/19 21:30 58 L 19 146/76 H 92
[2019-05-24] MEDS: PSEUDOEPHEDRINE HCL 30 MG TAB PO SCH ×3 (09:54→16:09)
[2019-05-24] MEDS ORDERED: Nursing to Pharmacy Communication ONE ×2 (12:08→14:13)
[2019-05-24] MEDS: LACTATED RINGER'S 1,000 ML IV SCH (12:10)
[2019-05-24] MEDS: METOPROLOL SUCC 25MG EXT REL TAB PO SCH (14:17)
--- NOTE | 2019-05-24 15:18 | Communication Note ---
Date of Service: May 24, 2019 Pt improved, BP stable on sudafed. Per Sindy, transfer to floor.
[2019-05-24] MEDS: ASPIRIN 325 MG ECTAB PO SCH (20:50)
[2019-05-24] MEDS: ATORVASTATIN 40 MG TAB PO SCH (20:50)
[2019-05-25] MEDS: PSEUDOEPHEDRINE HCL 30 MG TAB PO SCH ×2 (00:04→05:07)
--- NOTE | 2019-05-25 08:14 | Surgery Progress Note ---
Date of Service May 25, 2019 Assessment & Plan (1) Status post carotid endarterectomy: pt s/p R CEA, doing well post op. D/C home today on home meds D/C'd aura. Will see in the office in two weeks. Subjective 68 yo m POD #2 after uncomplicated R CEA wiht bovine patch angioplasty. He has no complaints today other than slight stiffness of right side of neck Physical Exam Constitutional: WD/WN, vitals as above ENMT: Mouth: no tongue abnormality Neck: trachea midline Respiratory: normal respiratory effort, lungs clear to auscultation Cardiovascular: RRR, no murmur, no edema Skin: Incision dry and clean Neurologic: patellar DTR's 2+ bilat, sensation intact Psychiatric: A+Ox3, euthymic affect Results & Data Vital Signs (Past 12 Hours) Vital Signs Temp Pulse Resp BP Pulse Ox 05/25/19 07:46 36.7 C 57 L 16 135/81 93 05/25/19 04:00 37 C 55 L 18 130/85 94 05/24/19 23:02 36.9 C 54 L 18 129/74 95
[2019-05-25] MEDS: FOLIC ACID 1 MG TAB PO SCH (09:04)
[2019-05-25] MEDS: VITAMIN B COMPLEX TAB PO SCH (09:04)
[2019-05-25] MEDS: allopurinoL 100 MG TAB PO SCH (09:04)
[2019-05-25] MEDS: METOPROLOL SUCC 25MG EXT REL TAB PO SCH (09:04)
--- NOTE | 2019-05-26 15:04 | Discharge Summary ---
Date of Service May 26, 2019 Admission HPI Per Admitting Provider Mr. Kole Mendez is a very pleasant 68-year-old gentleman who recently underwent a carotid duplex that was notable for 80% to 99% critical stenosis of the right internal carotid artery, less than 50% stenosis in the left internal carotid artery, and greater than 50% stenosis in the right external carotid artery. He then underwent a CT angio of the bilateral carotid arteries. CTA revealed extensive calcific atheromatous plaque at the level of the right carotid bulb with an estimated greater than 90% stenosis of the right internal carotid artery origin. This prompted a referral to the Vascular Surgery Office. He indicates that he has never had a stroke or TIA. He denies any episodes of vision loss, difficulty with speech or swallow, numbness, tingling, or weakness of the upper or lower extremities. His medical history is notable for prior PA, back in early 1999s. At this time, he had a coronary stent placed. He denies further anginal symptoms. He denies any issues with respiratory system. He has no known issues with his kidneys. He denies known abdominal issues. 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 This is associated with some hip and knee pain. He denies any cramping pain in his calves with ambulation. He also suffers from hypertension. His surgical history is notable for a previous knee replacement and a coronary artery stent placement. His family history is notable for heart disease, high blood pressure, diabetes, and cancer. Review of 10 systems performed. All were negative except for the HPI He denies any known medication allergies. His home medications include metoprolol, Diovan, Norvasc, folic acid, B vitamins, allopurinol, Lipitor, and aspirin 325 mg daily. On physical examination, his vital signs are as follows: Blood pressure 150/78, heart rate 58, oxygen saturation 96% on room air. He is well developed, well nourished, in no acute distress. His respirations are nonlabored on room air. His lungs are clear to auscultation bilaterally. On cardiac auscultation, he has an audible S1 and S2 with no murmurs, rubs, or gallops appreciated. On auscultation of his neck, there are bilateral carotid bruits present. His abdomen is soft, nontender, nondistended. There are no palpable pulsatile abdominal masses. His bilateral feet are warm and well perfused. There are palpable dorsalis pedis pulses present bilaterally. In regards to his neurologic examination, he responds to questions appropriately. Cranial nerves 2-12 are grossly intact. Motor and sensory are intact throughout all 4 extremities. On review of his imaging, there is a greater than 90% stenosis of the right internal carotid artery, which was noted on both the carotid duplex and CT angio as mentioned above. Admission Exam Per Admitting Provider On physical examination, his vital signs are as follows: Blood pressure 150/78, heart rate 58, oxygen saturation 96% on room air. He is well developed, well nourished, in no acute distress. His respirations are nonlabored on room air. His lungs are clear to auscultation bilaterally. On cardiac auscultation, he has an audible S1 and S2 with no murmurs, rubs, or gallops appreciated. On auscultation of his neck, there are bilateral carotid bruits present. His abdomen is soft, nontender, nondistended. There are no palpable pulsatile abdominal masses. His bilateral feet are warm and well perfused. There are palpable dorsalis pedis pulses present bilaterally. In regards to his neurologic examination, he responds to questions appropriately. Cranial nerves 2-12 are grossly intact. Motor and sensory are intact throughout all 4 extremities. Principal Diagnosis 1. s/p Right Carotid Endarterectomy with Bovine Patch 2. Right Internal Carotid Artery Stenosis Discharge Exam Constitutional WD/WN, vitals as above no acute distress Respiratory normal respiratory effort, lungs clear to auscultation Cardiovascular RRR, no murmur, no edema Gastrointestinal (Abdomen) normal bowel sounds, soft, nontender, no hepatosplenomegaly Neurologic moves all extremities; no focal motor deficits Psychiatric A+Ox3, euthymic affect Discharge Data Allergies Allergy/AdvReac Type Severity Reaction Status Date / Time No Known Allergies Allergy Unknown Verified 05/23/19 08:51 Consultations 05/23/19 15:22 Consult Emergency Medical Technician/Driver Routine Procedures Performed Operation Date: 05/23/19 10:20 Actual Procedures p Right Carotid Endarterectomy, with bovine patch(Right) - Ben Callahan MD Hospital Course (1) Status post carotid endarterectomy: pt s/p R CEA, doing well post op. D/C home today on home meds D/C'd sudafed. Will see in the office in two weeks. Total Time Total Time Spent Total Time Spent (In Minutes): 0 Discharge Plan Discharge Items Patient Disposition: Home - Self-Care Reason For Visit: Right Internal Carotid Artery Stenosis Discharge Diagnosis: Right carotid stenosis, right carotid endarterectomy Activity: Per Instructions section Bathing Comment: may shower Non-emergency contact: Surgeon Call non-emergency contact if: you have any medication questions, your symptoms worsen, your pain is not controlled, your pain is worsening, your pain is unusual for you, your pain is concerning for you, your temperature is above 101.5, your wound has increased redness, your wound has increased drainage and your wound pain has increased Follow-up/Referrals: Alex Correa III, MD [Primary Care Provider] - Diet: Heart Healthy Addtl Attending Provider Instructions: SPECIAL CARE INSTRUCTIONS: Medications: * Continue to take Aspirin as directed. Incision Care: * You may shower, but do not rub incision. You may let the warm soapy water run over it. Be sure to dry the incision well after bathing. * Do not shave directly over the incision until it is healed. * DO NOT IMMERSE THE INCISION IN A TUB/POOL/etc. UNTIL HEALED. Restrictions: * Do not drive for at least one week or if you are still taking any narcotic pain medication. * Do not lift anything heavier than a gallon of milk for one week after going home. Possible Complications: * Numbness - It is normal to have some numbness around the incision. Numbness can extend beyond the incision to areas of the neck, ear and face. The numbness is due to bruising of nerves during the surgery and will gradually improve over a period of months. * Hoarseness/Difficulty Speaking and Swallowing - The bruising of nerves in the neck can also cause a hoarse voice, difficulty speaking or swallowing. This may improve over time, HOWEVER, if it continues for more than a few days please contact our office ([phone]). * Excessive Swelling - There will be some swelling immediately after surgery which usually resolves within one week. If you notice that the swelling is getting worse, notify your surgeon ([phone]). * Drainage/Bleeding - If there is any drainage or bleeding, it should be a very small amount (less than a teaspoon per day). If you have excessive bleeding or drainage from the incision, call your surgeon ([phone]) right away. ACTIVATION OF EMERGENCY MEDICAL SYSTEM: Call 911, immediately, if you experience any of the following: Warning Signs and Symptoms of Stroke: * Sudden numbness or weakness of the face, arm or leg, especially on one side of the body * Sudden confusion, trouble speaking or understanding * Sudden trouble seeing in one or both eyes * Sudden trouble walking, dizziness, loss of balance or coordination * Sudden severe headache with no cause Do not delay calling 911 if you experience any warning signs or symptoms of a stroke. Delay in seeking medical attention may affect what treatments can be given to you. Risk Factors for Stroke: You can reduce your chances of stroke by working with your medical provider to adopt a healthy lifestyle. Some specific ways to lower your chance of stroke are: * If you are a smoker, now is the time to stop smoking cigarettes * If you are diabetic, improve the control of your blood sugars * Avoid excessive amounts of alcohol * Control high blood pressure * Lose weight if you are overweight * Be sure to lead an active lifestyle * Eat a healthy diet low in salt, cholesterol and fat You should know about other risk factors for stroke that you are unable to control. These include: * Age 55 years or older * Male gender * Certain racial groups: , or / * Family History of Stroke, Mini stroke or Heart Attack * Sickle Cell Disease You will be receiving a call from the Vascular Surgery Nurse after you are discharged. FOLLOW UP VISIT: It is important for you to keep your follow up appointments with your medical provider. Keep any scheduled doctor appointments. Call [phone] to schedule a follow up appointment if one not already scheduled. Pending Studies at Discharge: No Stand-Alone Forms: My [facility] [employer], Opioid Pain Management, Smoking Cessation Medications and DC Order Prescriptions: New oxycodone-acetaminophen [Percocet] 5-325 mg tablet 1 tab PO Q6H PRN (Reason: pain) Qty: 10 RF: 0 Continued albuterol sulfate [ProAir HFA] 90 mcg/actuation HFA aerosol inhaler 2 puffs INH QID PRN (Reason: shortness of breath or wheezing) Qty: 8 RF: 2 cetirizine 10 mg tablet 10 mg PO DAILY PRN (Reason: Allergy Symptoms) RF: 0 vitamin B complex [Super B-50 Complex] Capsule 1 cap PO QAM RF: 0 atorvastatin 80 mg tablet 80 mg PO PM RF: 0 aspirin 325 mg tablet 325 mg PO PM RF: 0 metoprolol succinate [Toprol XL] 50 mg tablet extended release 24 hr 50 mg PO QAM RF: 0 amlodipine 5 mg tablet 7.5 mg PO QAM RF: 0 allopurinol 100 mg tablet 100 mg PO BID RF: 0 folic acid 1 mg tablet 1 mg PO QAM RF: 0 valsartan 160 mg tablet 160 mg PO QAM RF: 0 desoximetasone [Topicort] 0.25 % cream 1 appln TOP BID PRN (Reason: skin irritation) RF: 0 Discharge Orders: Discharge Order (Routine); Ordered 05/25/19 Ordered By: Ben Callahan Admission Data Admit Date/Time: 05/23/19 10:12 Attending Provider: Ben Callahan Admit Provider: Ben Callahan Primary Care Provider: Alex Correa III Other Providers: Nash Nascimento ; Montana Bean ; Stas De Luna ; Burt Contreras ; Lorenzo Sinha ; Rey Gomez ; Ani Rodriguez Other Interventions: Discharge Summary Assessment (RN) Last Done: 05/25/19 09:23 DC Date/Time DO NOT enter until pt leaves facility: 05/25/19 10:21
== END 2019-05-25 10:21 | disposition home or self-care (01) | DRG 39 ==
LOC: ASU 08:11 → 1E 10:12 → 3W 05-24 15:16